=== PATIENT | male | born 1995 | race Caucasian/White ===

== ENCOUNTER 2022-12-08 14:32 | Emergency (ER) | payer OTHER, SELFPAY ==
[2022-12-08 14:47] VITALS: BP 145/110; PULSE 89; RESP 16; TEMP 36.7; O2SAT 100
--- NOTE | 2022-12-08 15:01 | ED.UPPEXIN ---
HPI - Extremity Injury (Upper) General Chief Complaint: Extremity Injury, Upper Stated Complaint: lt shoulder pain Time Seen by Provider: 12/08/22 15:05 Source: patient, RN notes reviewed and old records reviewed Mode of arrival: ambulatory Limitations: no limitations History of Present Illness HPI narrative: 27 year old male presents to [facility] care with complaints of slipping on wet ramp while in [place] and hit his left scapular region when he fell backward on the ramp on November 30. Patient reports that he thinks he has an injured ligament or tendon strain to his left shoulder. Patient reports that he needs note for work that states he can't go to work because he has limited mobility of his shoulder. He refuses x-ray of his left shoulder reporting that he can't afford to get x-ray at this time. Patient has decreased ROM to his left shoulder due to pain, strong pulses to left arm, sensation is intact. MD complaint: injury to: left and shoulder Onset (ago): day(s) (occurred on the ) Other injuries: none Severity scale (1-10): 3 Treatments prior to arrival: other (aspirin) Related Data Allergies Allergy/AdvReac Type Severity Reaction Status Date / Time No Known Allergies Allergy Verified 12/08/22 15:05 Review of Systems Review of Systems: CONSTITUTIONAL: Denies fever, chills, or sweats. EYES: Denies visual changes, redness, or discharge. ENT: Denies rhinorrhea, congestion, sore throat, or otalgia. CARDIOVASCULAR: Denies chest pain, palpitations, or edema. RESPIRATORY: Denies cough or dyspnea. GASTROINTESTINAL: Denies abdominal pain, nausea, vomiting, or diarrhea. GENITOURINARY: Denies dysuria or hematuria. SKIN: Denies rash or itching. MUSCULOSKELETAL: Denies back pain,positive for left shoulder pain with limitation of movement due to pain or myalgia since fall in [place]. NEUROLOGIC: Denies headache, numbness, or weakness. PSYCHIATRIC: Denies anxiety or depression. All systems reviewed & are unremarkable except as noted in HPI and below PMFSH Social History Social History (Updated 12/09/22 @ 19:53 by Kelsi Daley NP) Smoking status: Never smoker Alcohol intake: current Alcohol use details: social Substance use type: does not use Gender identity (if verbalized by the patient): Male Comments At time of signature, agree with nursing past medical, surgical, social and family history. There is no relevant family history pertinent to the presenting complaint Exam Narrative: GENERAL: Well-appearing, well-nourished, and in no acute distress. HEAD: Normocephalic, atraumatic. EYES: PERRLA and EOMI. ENT: Nares clear, no rhinorrhea or epistaxis. Mucous membranes moist. NECK: Supple. supple no lymphadenopathy CHEST: Clear to auscultation. No respiratory distress.SAO2 100% on room air HEART: Regular rate and rhythm. No murmur heard. Normal peripheral pulses. ABDOMEN: Soft, nontender, nondistended, normal active bowel sounds. EXTREMITIES: Normal range of motion. No edema.Exception noted to left shoulder region which is painful with limited ROM of left arm, sensation and circulation is intact to his left arm.Patient has no redness or bruising to his left scapular region or shoulder. SKIN: Warm, dry, no rash. NEURO: No focal deficits. Alert and oriented x3. Course Course Emergency Course: Patient is aware of diagnosis, understands and agrees to treatment plan.? Anticipatory guidance given.? Patient agrees to follow-up as directed and is aware of reasons to seek care at the emergency department. Portions of this record may have been created with voice recognition software Level of Care: Express Care Visit Vital Signs Vital signs: Vital Signs Temperature 36.7 C 12/08/22 14:47 Pulse Rate 89 12/08/22 14:47 Respiratory Rate 16 12/08/22 14:47 Blood Pressure 145/110 H 12/08/22 14:47 Pulse Oximetry 100 12/08/22 14:47 Temperature 36.7 C 12/08/22 14:47 Pulse Rate 89 12/08/22 14:47 Respirator
== END 2022-12-08 15:30 | disposition home or self-care (01) ==
PROVIDERS: Emergency Provider Registered Nurse
DX: S46.912A Strain of unspecified muscle, fascia and tendon at shoulder and upper arm level, left arm, initial encounter (principal); W01.0XXA Fall on same level from slipping, tripping and stumbling without subsequent striking against object, initial encounter
CPT/HCPCS: 99213; G0463

== ENCOUNTER 2024-08-11 17:01 | Emergency (ER) | payer SELFPAY ==
--- NOTE | 2024-08-11 17:16 | PC.NURSE ---
Pt to triage desk stating I want to let you know I'm leaving to go to [facility], it's an insurance thing. Pt ambulated to exit using steady gait
== END 2024-08-11 18:08 | disposition left against medical advice (07) ==
LOC: ANHED 17:59
DX: Z53.21 Procedure and treatment not carried out due to patient leaving prior to being seen by health care provider (principal)
CPT/HCPCS: 99199